=== PATIENT | female | born 1995 | race Caucasian/White ===

== ENCOUNTER 2017-06-03 10:11 | Emergency (ER) | payer BC ==
[2017-06-03 10:36] VITALS: BP 111/65
[2017-06-03] MEDS ORDERED: Tetracaine 0.5% OPTH.SOL 4 ML* 1 DROP BTL ONE (10:47)
[2017-06-03] MEDS ORDERED: BSS OPTH.SOL* BTL ONE (10:47)
[2017-06-03] MEDS ORDERED: Fluorescein Sodium TOPICAL* 1 MG TEST ONE (10:47)
--- NOTE | 2017-06-03 10:54 | UC ---
Eye Complaint HPI - HPI Summary HPI Summary: 22 female presents to with complaints of bilateral eye redness, pain and photophobia that began ~2 days ago. Patient wears contacts and states she did try and wear them yesterday and her pain worsened. Pain began in right eye and then began in left eye this morning. Pain and symptoms are worse in right eye. Patient denies getting any known FB into her eye. Admits to feeling like "an eyelash" is in her eye. Does have some blurred vision in right eye due to pain and tearing. Denies loss of vision. Clear teary discharge b/l. Also states they feel swollen. Tried using anti-red drops OTC without relief. Denies any other symptoms at this time. No PMHx. - History of Current Complaint Chief Complaint: UCEye Stated Complaint: BILATERAL EYE COMPLAINT Time Seen by Provider: 06/03/17 10:48 Hx Obtained From: Patient Hx Last Menstrual Period: "last week" ?: No Onset/Duration: Sudden Onset, Lasting Days - 2, Still Present, Worse Since Severity Initially: Moderate Severity Currently: Moderate Pain Intensity: 7 Pain Scale Used: 0-10 Numeric Location of Injury: Globe, Sclera Character: Foreign Body Sensation Aggravating Factor(s): Light, Contact Lens, Blinking Alleviating Factor(s): Darkness Associated Signs And Symptoms: Positive: Photophobia, Drainage (Clear), Vision Impairment Right - blurry from tearing and pain, Swelling - Allergies/Home Medications Allergies/Adverse Reactions: Allergies Allergy/AdvReac Type Severity Reaction Status Date / Time No Known Allergies Allergy Verified 06/03/17 10:30 Home Medications: Home Medications Escitalopram (NF) [Lexapro 20 mg (NF)] 20 mg PO DAILY 06/03/17 [History Confirmed 06/03/17] Oral Control 1 tab PO DAILY 06/03/17 [History Confirmed 06/03/17] PMH/Surg Hx/FS Hx/Imm Hx - Additional Past Medical History Additional PMH: No PMHx. No diabetes, HTN or asthma - Surgical History Surgical History: None - Family History Known Family History: Positive: None - Social History Alcohol Use: Occasionally Substance Use Type: None Smoking Status (MU): Never Smoked Tobacco - Immunization History Most Recent Influenza Vaccination: Not the Season Review of Systems Constitutional: Negative Skin: Negative Eyes: Blurred Vision, Drainage, Eye Redness, Photophobia ENT: Negative Respiratory: Negative Cardiovascular: Negative Neurological: Negative Is Patient Immunocompromised?: No All Other Systems Reviewed And Are Negative: Yes Physical Exam Triage Information Reviewed: Yes Appearance: Well-Appearing, Well-Nourished, Pain Distress - laying with lights off cool compress over eyes Vital Signs: Initial Vital Signs Temp 98.2 F 06/03/17 10:27 Pulse 74 06/03/17 10:27 Resp 16 06/03/17 10:27 BP 111/65 06/03/17 10:27 Pulse Ox 100 06/03/17 10:27 Vital Signs Reviewed: Yes Eyes: Positive: Conjunctiva Inflamed, Discharge - trearing, Other: - photophobic , erythematous with some edema surround lids, worse on right than left, fluroscein stain done b/l no FB noted, small abrasion noted on right eye. no surrounding periorbital cellulitis. no FB under eye lids/conjunctiva ENT: Positive: Normal ENT inspection, Hearing grossly normal, Pharynx normal, Nasal drainage Neck: Positive: Supple, Nontender, No Lymphadenopathy Respiratory: Positive: Chest non-tender, Lungs clear, Normal breath sounds, No respiratory distress, No accessory muscle use. Negative: Stridor, Wheezing Cardiovascular: Positive: RRR, No Murmur, Pulses Normal, Brisk Capillary Refill Musculoskeletal Exam: Normal Musculoskeletal: Positive: Strength Intact Neurological Exam: Normal Skin Exam: Normal Procedures - Eye Procedure Alcaine Drops Administered: Yes Eye Irrigated w/ Saline (ccs): 50 Eye Complaint Course/Dx - Course Course Of Treatment: fluroscein stain completed and showed right corneal abrasion. probable left eye pain and irritation due to contact and pain from corneal abrasion of right eye. no concern for FB or noted corneal abrasion. possible infection also due to contact lense wearer. recommended ibuprofen for pain and inflammation. keep fingers out of eye. do not wear contacts for atleast 7 days, prophylactic antibitoic drops. follow up pcp. - Differential Dx/Diagnosis Differential Diagnosis/HQI/PQRI: Conjunctivitis, Corneal Abrasion, Foreign Body , Periorbital Cellulitis, Uveitis Provider Diagnoses: corneal abrasion, right eye. irritation left eye Discharge - Discharge Plan Condition: Improved Disposition: HOME Prescriptions: Ciprofloxacin 0.3% OPTH.MELVA* [Cipro 0.3% Opth*] 1 drop BOTH EYES Q2H #1 btl Patient Education Materials: Corneal Abrasion (ED) Forms: *School Release Additional Instructions: Use prescribed eye drops as directed for the next 7 days. Continue use of sunglasses and cool compresses to rest eyes and let heal. Ibuprofen for pain and inflammation may help you. Take with food. Do not wear contacts for the next 7 days, wear glasses. Recommend after 7 days to use new contact lenses. Follow up with PCP or return if symptoms worsen or do not improve in the next 2- 3 days.
== END 2017-06-03 11:16 | disposition home or self-care (01) ==
LOC: UCCORT 10:11
DX: S05.01XA Injury of conjunctiva and corneal abrasion without foreign body, right eye, initial encounter (principal); X58.XXXA Exposure to other specified factors, initial encounter
CPT/HCPCS: 99202; A9270-GY; G0463